=== PATIENT | female | born 1970 | race Native Hawaiian/Other Pacific Islander ===

== ENCOUNTER 2017-07-02 00:20 | Emergency (ER) | payer BC ==
[~2017-07-02] VITALS: Ht 165.1 cm; Wt 131.5 kg
[2017-07-02 02:24] VITALS: BP 137/91; TEMP 99.2
== END 2017-07-02 02:25 | disposition home or self-care (01) ==
LOC: ED 00:20
DX: L27.0 Generalized skin eruption due to drugs and medicaments taken internally (principal); T36.1X5A Adverse effect of cephalosporins and other beta-lactam antibiotics, initial encounter; Y92.098 Other place in other non-institutional residence as the place of occurrence of the external cause
CPT/HCPCS: 96374; 96375; 99283; J1100; J1200; J3490

== ENCOUNTER 2020-12-23 13:51 | Outpatient (CLI) | payer OTHER ==
[2020-12-23 14:07] LABS: PLATELET COUNT 113 K/uL (152-353)
[2020-12-23 15:01] LABS: POTASSIUM 4.4 mmol/L (3.6-5.2)
== END 2020-12-23 19:26 | disposition home or self-care (01) ==
LOC: LAB 13:51
PROVIDERS: ATTEND Nurse Practitioner Family
DX: K21.9 Gastro-esophageal reflux disease without esophagitis (principal); F41.8 Other specified anxiety disorders; I10 Essential (primary) hypertension; M79.7 Fibromyalgia; F32.9 Major depressive disorder, single episode, unspecified; E78.2 Mixed hyperlipidemia; M06.8A Other specified rheumatoid arthritis, other specified site; E66.9 Obesity, unspecified; Z79.899 Other long term (current) drug therapy
CPT/HCPCS: 80053; 80061; 82306; 82607; 83036; 84439; 84443; 85027

== ENCOUNTER 2022-10-18 12:11 | Outpatient (CLI) | payer OTHER ==
[2022-10-18 12:54] LABS: PLATELET COUNT 115 K/uL (152-353); POTASSIUM 4.3 mmol/L (3.6-5.2)
== END 2022-10-18 19:03 | disposition home or self-care (01) ==
LOC: LAB 12:11
PROVIDERS: ATTEND Nurse Practitioner Family
DX: I10 Essential (primary) hypertension (principal); K21.9 Gastro-esophageal reflux disease without esophagitis; F32.9 Major depressive disorder, single episode, unspecified; M79.7 Fibromyalgia; E78.2 Mixed hyperlipidemia; E66.9 Obesity, unspecified; M06.8A Other specified rheumatoid arthritis, other specified site; E66.3 Overweight; F41.8 Other specified anxiety disorders; E11.9 Type 2 diabetes mellitus without complications; K74.60 Unspecified cirrhosis of liver; G89.29 Other chronic pain; K76.0 Fatty (change of) liver, not elsewhere classified
CPT/HCPCS: 80053; 80061; 83036; 84439; 84443; 85027

== ENCOUNTER 2022-10-28 11:28 | Outpatient (CLI) | payer OTHER | END 2022-10-28 17:00 | disposition home or self-care (01) | LOC: US 11:28 | PROVIDERS: ATTEND Nurse Practitioner Family | DX: M79.89 Other specified soft tissue disorders (principal); M79.605 Pain in left leg; L53.8 Other specified erythematous conditions ==